=== PATIENT | female | born 1985 | race Caucasian/White ===

== ENCOUNTER → 2024-03-29 | Outpatient (CLI) | payer OTHER, SELFPAY ==
--- NOTE | 2024-03-29 14:25 | XR_ITS ---
Examination: Wrist, left 3 views Technique: Wrist AP, oblique, lateral 3 views Date and time of exam: March 29, 2024 1442 hours INDICATIONS: Wrist injury this week with wrist pain. FINDINGS: Mild narrowing radiocarpal joint No fracture or dislocation No foreign body IMPRESSION: No fracture or dislocation
--- NOTE | 2024-03-29 14:25 | XR_ITS ---
Examination: Left elbow 3 views Technique: Elbow AP, oblique, lateral 3 views Exam date and time: March 29, 2024 1452 hours INDICATIONS: Injury to the elbow this week, elbow pain. FINDINGS: No fracture or dislocation No elbow effusion IMPRESSION: Negative for osseous abnormality.
--- NOTE | 2024-03-29 14:25 | XR_ITS ---
Examination: Shoulder,left, 3 views Technique: Shoulder AP internal rotation, AP external rotation, Y view shoulder, 3 views Exam date and time :August 01, 2023 at 1442 hours INDICATIONS: Injury to the shoulders this week, shoulder pain. FINDINGS: No shoulder fracture or shoulder dislocation No AC joint separation IMPRESSION: No shoulder fracture or dislocation
[2024-03-29 17:49] LABS: Red Blood Count 4.65 Miln/mm3 (4.00-5.20); White Blood Count 6.5 Thou/mm3 (3.6-11.0)
[2024-03-29 17:50] LABS: Basophils # (Auto) 0.1 Thou/mm3 (0.0-0.2); Basophils % (Auto) 1 % (0-2.5); Eosinophils # (Auto) 0.2 Thou/mm3 (0.0-0.5); Eosinophils % (Auto) 3 % (0-10); Hematocrit 38.8 % (36.0-46.0); Hemoglobin 12.6 g/dL (12.0-16.0); Immature Granulocytes % (Auto) 0 % (0-0); Immature Granulocytes Auto 0.01 Thou/mm3 (0.00-0.00); Lymphocytes # (Auto) 1.8 Thou/mm3 (1.0-4.8); Lymphocytes % (Auto) 28 % (10-50); Mean Corpuscular HGB Conc 32.5 g/dl (31.0-37.0); Mean Corpuscular Hemoglobin 27.1 pg (25.0-35.0); Mean Corpuscular Volume 83 fL (80-100); Monocytes # (Auto) 0.6 Thou/mm3 (0.0-0.8); Monocytes % (Auto) 10 % (0-12); Neutrophils # (Auto) 3.7 Thou/mm3 (1.8-7.7); Neutrophils % (Auto) 58 % (37-80); Nucleated Red Blood Cell % 0 /100 WBC (0); Platelet Count 405 Thou/mm3 (140-440); RDW Standard Deviation 44.6 fL (36.4-46.3)
[2024-03-29 18:06] LABS: Alanine Aminotransferase 20 U/L (10-49); Albumin, Serum 4.4 gm/dL (3.5-5.0); Alkaline Phosphatase 83 U/L (46-116); Anion Gap 8 (7-16); Aspartate Amino Transferase 21 U/L (0-34); BUN/Creatinine Ratio 16 Ratio (12-20); Bilirubin,Direct 0.1 mg/dL (0.0-0.3); Bilirubin,Total 0.3 mg/dL (0.3-1.2); Blood Urea Nitrogen 16 mg/dL (9-23); Calcium 9.6 mg/dL (8.3-10.6); Carbon Dioxide 27.6 mMol/L (20.0-31.0); Cardiac Risk Estimate 2.4 RATIO (3.7-5.6); Chloride 105 mMol/L (98-107); Cholesterol 141 mg/dL (132-200); Free T3 3.1 pg/mL (2.3-4.2); Glucose 93 mg/dL (74-106); HDL Cholesterol 60 mg/dL (40-60); LDL Cholesterol,Calculated 62 mg/dL (0-130); Osmolality,Calculated 282 (275-295); Phosphorous 3.8 mg/dL (2.4-5.1); Potassium 3.8 mMol/L (3.4-5.1); Sodium 141 mMol/L (136-145); Thyroid Stimulating Hormone 4.12 uIU/mL (0.55-4.78); Triglycerides 93 mg/dL (30-150); eGFR > 60 See Note
[2024-03-29 18:09] LABS: Glucose Estimated Average 97 mg/dL (80-131)
[2024-04-05 06:49] LABS: T3, Reverse, LC/MS/MS* 19 ng/dL (8-25); hs-CRP* 8.6 mg/L
== END | disposition home or self-care (01) ==
LOC: CDIM 14:18 → COPL 15:01
PROVIDERS: PCP Family Medicine; Referring Provider Nurse Practitioner Family; Visit Provider Radiology Diagnostic Radiology
DX: M54.2 Cervicalgia (principal); M25.512 Pain in left shoulder; M25.532 Pain in left wrist; E03.9 Hypothyroidism, unspecified; E88.9 Metabolic disorder, unspecified; E34.9 Endocrine disorder, unspecified; E08.9 Diabetes mellitus due to underlying condition without complications
CPT/HCPCS: 36415; 73030; 73080; 73110; 80048; 80061; 80076; 83036; 84100; 84439; 84443; 84481; 84482; 85025; 86141

== ENCOUNTER 2024-04-29 10:30 | Outpatient (RCR) | payer OTHER, SELFPAY ==
--- NOTE | 2024-04-22 10:16 | PT.OIERPT ---
PT OP Initial Eval Patient Information Outpatient Physical Therapy Treatment Date: 04/22/24 Visit Reasons: neck pain Medical Diagnosis: M54.2 Treatment Dx #1: Neck Pain Treatment Dx #2: Left UE numbness Start of Care: 04/22/24 Date of Onset: 1 month ago Smoking Status Smoking Status: Never smoker Initial Assessment Subjective: Pt is a 38 y/o female reports of neck pain (10/07) with left UE numbness especially in her thumb and index. No imaging has been done thus far in the neck. Pt has limitation with lifting, gripping, chores, self care, cooking, cleaning, work duties, and recreational activities. 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
--- NOTE | 2024-04-26 11:16 | PT.ODAYNRPT ---
PT Outpatient Daily Note OP Daily Note Outpatient Physical Therapy Treatment Date: 04/26/24 Visit Reasons: neck pain Subjective: Pt still cant's feel her fingers due to numbness. Pt mentioned she can't pinch therapist even if she wanted to. Objective: Please see flow chart for list of ther ex performed Assessment: decrease neck pain post PT session. Pt tolerate mechanical traction well; minimal changes with radicular pain down the fingers Plan: Continue with PT Length of Time (minutes) of Treatment: 30 Minutes Procedure Charges Traction Mechanical: Yes Therapeutic Exercise 15 minutes: Yes
--- NOTE | 2024-04-29 12:56 | PT.ODAYNRPT ---
PT Outpatient Daily Note OP Daily Note Outpatient Physical Therapy Treatment Date: 04/29/24 Visit Reasons: neck pain Subjective: Pt's neck felt better with traction, however, still has left arm numbness Objective: Please see flow chart for list of ther ex performed Assessment: minimal changed with left UE numbness post PT session, however, patient reports decrease neck pain Plan: Continue with PT Length of Time (minutes) of Treatment: 30 Minutes Procedure Charges Traction Mechanical: Yes Therapeutic Exercise 15 minutes: Yes
== END 2024-04-30 23:59 | disposition home or self-care (01) ==
LOC: CPTX 10:30
PROVIDERS: PCP Nurse Practitioner Family; Referring Provider Nurse Practitioner Family; Visit Provider Nurse Practitioner Family
DX: M54.2 Cervicalgia (principal); R20.0 Anesthesia of skin
CPT/HCPCS: 97012; 97110; 97162

== ENCOUNTER 2024-05-11 08:30 | Outpatient (RCR) | payer OTHER, SELFPAY ==
--- NOTE | 2024-05-04 09:16 | PT.ODAYNRPT ---
PT Outpatient Daily Note OP Daily Note Outpatient Physical Therapy Treatment Date: 05/04/24 Visit Reasons: NECK PAIN Subjective: Pt's left shoulder blade is hurting more. Pt mentioned no change in her fingers; it continues to be numb Objective: Please see flow chart for list of ther ex performed Assessment: no change in numbness post PT session. Pt reported of decrease neck pain post c/s traction. Plan: Continue with PT Length of Time (minutes) of Treatment: 30 Minutes Procedure Charges Traction Mechanical: Yes Therapeutic Exercise 15 minutes: Yes
--- NOTE | 2024-05-06 08:58 | PT.ODAYNRPT ---
PT Outpatient Daily Note OP Daily Note Outpatient Physical Therapy Treatment Date: 05/06/24 Visit Reasons: NECK PAIN Subjective: Pt reports has been worse these last 4 days and notices the pain in her arms iw worse. Objective: Please see flow sheet for ther ex list. Assessment: Pt c/o pain delaying progress, regressed interventions today to accommodate symtpoms. Plan: Assess for note. Length of Time (minutes) of Treatment: 30 Minutes Procedure Charges Therapeutic Exercise 30 minutes: Yes
--- NOTE | 2024-05-11 16:06 | PTNOTE_ITS ---
PT OP Progress/Discharge Note Date of Service: 05/11/24 Progress Note/DC Note Progress Note/Discharge Note: DC Note Patient Information Visit Reasons: NECK PAIN Medical Diagnosis: M54.2 Treatment Dx #1: Neck Pain Service Discharge Date: 05/11/24 Status Subjective: Pt's neck continues to hurt with left UE numbness. Due to patient's symptoms Pt has limitation with ADLs, gripping, lifting, chores, and recreational activities. Pt will be seeing the neurosurgeon tomorrow for consultation. 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 Pt will no longer benefit from physical therapy due to plateau towards goals. Recommend c/s MRI to help rule in/out nature of pain. Pt was instructed on HEP last session and educated to continue exercises to maintain overall mobility. Pt performed all exercises safely, thank you for your referrals. Plan: D/C home with HEP and follow up with MD PARKER Recommend c/s MRI Procedure Charges Traction Mechanical: Yes
== END 2024-05-28 23:59 | disposition home or self-care (01) ==
LOC: CPTX 08:30
PROVIDERS: PCP Nurse Practitioner Family; Referring Provider Nurse Practitioner Family; Visit Provider Nurse Practitioner Family
DX: M54.2 Cervicalgia (principal); R20.0 Anesthesia of skin
CPT/HCPCS: 97012; 97110